=== PATIENT | male | born 1975 | race American Indian/Alaskan Native ===

== ENCOUNTER 2016-08-04 17:18 | Emergency (ER) | payer BC, OTHER ==
[2016-08-04 17:26] VITALS: BP 185/137
--- NOTE | 2016-08-05 08:53 | XRay Report ---
RIGHT FOOT THREE VIEWS: 08/04/16 17:18:00 CLINICAL: Pain COMPARISON: 07/14/14 FINDINGS: No fracture or dislocation. A slightly larger Achilles spur and a stable small plantar calcaneal spur. The joint spaces are normal. Normal soft tissues. IMPRESSION: Calcaneal enthesopathy and otherwise normal.
== END 2016-08-05 00:15 | disposition left against medical advice (07) ==
LOC: ED 17:18
DX: M79.671 Pain in right foot (principal); Z53.21 Procedure and treatment not carried out due to patient leaving prior to being seen by health care provider

== ENCOUNTER 2016-08-05 11:46 | Emergency (ER) | payer BC ==
[2016-08-05] MEDS ORDERED: APRESOLINE IV ONE (18:53)
[2016-08-05] MEDS ORDERED: TORADOL IV ONE (20:40)
[2016-08-05] MEDS ORDERED: NORMODYNE IV ONE (20:41)
[2016-08-05 21:25] VITALS: BP 147/106
--- NOTE | 2016-08-05 21:38 | Emergency Department Report ---
HPI - General Chief Complaint: Extremity Injury, Lower Time Seen by Provider: 08/05/16 20:30 - HPI HPI: The patient is a 41-year-old male who presents for evaluation of right foot pain. The patient reports 3 days of pain to the heel of the right foot in severity, sharp in quality, exacerbated with ambulation or weightbearing. He shares that he engages in extended periods of ambulation and standing while at work. He denies trauma to the left heel/foot, paresthesias, motor deficit, redness, ecchymosis, swelling, fever. He admits to noncompliance with antihypertensive medication regimen. ED Past Medical Hx - Past Medical History Previous Medical History?: Yes Hx Hypertension: Yes (no meds) - Social History Smoking Status: Never Smoker Substance Use Type: Alcohol - Medications Home Medications: Home Medications Medication Instructions Recorded Confirmed Last Taken Type HYDROcodone/APAP 5-325 [[place] 1 each PO Q6HR PRN #10 tablet 07/14/14 Unknown Rx 5/325] Lisinopril/Hydrochlorothiazide 1 each PO QDAY #30 tablet 07/14/14 Unknown Rx [Zestoretic 20-12.5 mg] Diclofenac Dr [Elarerichie Dr] 75 mg PO Q12H #20 tablet 12/03/14 Unknown Rx HYDROcodone/APAP 5-325 [[place] 1 each PO Q6HR PRN #20 tablet 12/03/14 Unknown Rx 5-325 mg TAB] Lisinopril/Hydrochlorothiazide 1 tab PO QDAY #30 tab 12/03/14 Unknown Rx [Zestoretic 20-25 mg] HYDROcodone/APAP 7.5-325 [[place] 1 each PO Q8HR PRN #14 tablet 08/05/16 Unknown Rx 7.5-325 mg TAB] Hydrochlorothiazide [HCTZ] 25 mg PO QDAY #30 tablet 08/05/16 Unknown Rx Ibuprofen [Motrin] 600 mg PO Q8H PRN #20 tablet 08/05/16 Unknown Rx ED Review of Systems ROS: Stated complaint: RIGHT FOOT PAIN Other details as noted in HPI Constitutional: denies: fever ENT: denies: throat or neck pain Respiratory: denies: cough, shortness of breath Cardiovascular: denies: chest pain Endocrine: denies unexplained weight loss or gain Gastrointestinal: denies: abdominal pain, nausea Genitourinary: denies: dysuria Musculoskeletal: reports foot pain denies: leg swelling Skin: denies: rash Neurological: denies: headache Hematological/Lymphatic: denies: easy bleeding or easy bruising Psych: denies sadness or hopelessness Physical Exam - Physical Exam Vital Signs: Vital Signs 08/05/16 08/05/16 08/05/16 12:32 18:22 18:59 Temperature 98 F Pulse Rate 69 60 64 Respiratory 18 16 Rate Blood Pressure 197/139 167/128 Blood Pressure 200/140 [Left] O2 Sat by Pulse 99 100 Oximetry 08/05/16 08/05/16 08/05/16 19:34 20:10 20:57 Temperature Pulse Rate 93 H 99 H Respiratory 16 Rate Blood Pressure 164/99 Blood Pressure 157/98 164/99 [Left] O2 Sat by Pulse 97 Oximetry 08/05/16 21:02 Temperature Pulse Rate 84 Respiratory 16 Rate Blood Pressure Blood Pressure 147/106 [Left] O2 Sat by Pulse 100 Oximetry Physical Exam: General: well-nourished, well-developed, no acute distress Head: Normocephalic, atraumatic Eyes: normal sclera ENT: Mucous membranes are pink and moist Respiratory: Breath sounds equal bilaterally, no wheezing, rales, or rhonchi Cardio: S1 and S2 present, no murmurs, rubs, gallops, capillary refill is brisk Musc: Inspection of the left foot and ankle unremarkable, tenderness to palpation present to the left heel, pain elicited with plantarflexion of the left foot at the ankle joint, Achilles tendon function intact, no sensation or motor deficit to the left ankle or foot Skin: No rash Neuro: no facial drooping, normal speech Psych: Normal affect ED Course Vital Signs 08/05/16 08/05/16 08/05/16 12:32 18:22 18:59 Temperature 98 F Pulse Rate 69 60 64 Respiratory 18 16 Rate Blood Pressure 197/139 167/128 Blood Pressure 200/140 [Left] O2 Sat by Pulse 99 100 Oximetry 08/05/16 08/05/16 08/05/16 19:34 20:10 20:57 Temperature Pulse Rate 93 H 99 H Respiratory 16 Rate Blood Pressure 164/99 Blood Pressure 157/98 164/99 [Left] O2 Sat by Pulse 97 Oximetry 08/05/16 21:02 Temperature Pulse Rate 84 Respiratory 16 Rate Blood Pressure Blood Pressure 147/106 [Left] O2 Sat by Pulse 100 Oximetry ED Medical Decision Making - Medical Decision Making The patient was seen and examined by myself. The patient is placed on a log rafter and continuous pulse ox. On initial evaluation, the patient was found to be in no distress. Evaluation orders were placed. The patient was given IV Toradol for his pain, and IV hydralazine and labetalol for his elevated blood pressure. X-ray of the left ear reveals calcaneal spur and otherwise is negative for fracture, dislocation, or periosteal elevation. On reexamination the patient's blood pressure was found to decrease outside of range concerning for hypertensive emergency, he reports that his pain is significantly improved. The patient is stable for discharge with outpatient follow-up. The patient is given follow-up and return instructions. The patient expressed understanding and agreed with the plan. The patient is discharged in stable condition. Critical care attestation.: If time is entered above; I have spent that time in minutes in the direct care of this critically ill patient, excluding procedure time. ED Disposition Clinical Impression: Plantar fasciitis, Hypertensive urgency Calcaneal spur Qualifiers: Laterality: left Qualified Code(s): M77.32 - Calcaneal spur, left foot Disposition: DISCHARGED TO HOME OR SELFCARE Is pt being admited?: No Does the pt Need Aspirin: No Condition: Stable Instructions: Plantar Fasciitis (ED) Prescriptions: Hydrochlorothiazide [HCTZ] 25 mg PO QDAY #30 tablet HYDROcodone/APAP 7.5-325 [[place] 7.5-325 mg TAB] 1 each PO Q8HR PRN #14 tablet PRN Reason: Pain Ibuprofen [Motrin] 600 mg PO Q8H PRN #20 tablet PRN Reason: Pain Referrals: PRIMARY CARE,MD [Primary Care Provider] - 3-5 Days Time of Disposition: 21:33
== END 2016-08-05 21:54 | disposition home or self-care (01) ==
LOC: ED 11:46
DX: M72.2 Plantar fascial fibromatosis (principal); I16.0 Hypertensive urgency; M77.32 Calcaneal spur, left foot
CPT/HCPCS: 96374; 96375; 99283; J0360; J1885